=== PATIENT | male | born 1965 | race Caucasian/White ===

== ENCOUNTER 2020-08-05 06:28 | Day surgery (SDC) | payer OTHER, SELFPAY ==
[2020-07-30 11:01] VITALS: BMI 36.6
--- NOTE | 2020-08-02 12:55 | P.CONAN_ITS ---
HPI - Anesthesia Eval Consult details Narrative: 54yo M for Colonoscopy [facility] Past Medical History Medical History History of anxiety HTN (hypertension) Hx of Crohn's disease Surgical History Surgical History H/O colonoscopy History of surgical removal of ganglion cyst Hx of wisdom tooth extraction Social History Social History Patient Tobacco Use Status: Never used Tobacco Use of substances other than those prescribed or required for medical reasons: No Have you been hit, kicked, punched, or otherwise hurt by someone within the past year? If so, by whom?: No Are you DNR?: No Advance Directives Information Provided: No Meds Allergies Allergy/AdvReac Type Severity Reaction Status Date / Time No Known Allergies Allergy Verified 08/05/20 06:49 Home Medications Medication Instructions Recorded Confirmed Last Taken Type balsalazide 1,500 mg PO BID 07/30/20 07/30/20 Unknown History cetirizine [Zyrtec] 10 mg PO DAILY 07/30/20 07/30/20 Unknown History lorazepam 0.5 mg PO Q6H PRN 07/30/20 07/30/20 Unknown History losartan 50 mg PO DAILY 07/30/20 07/30/20 Unknown History tadalafil 5 mg PO DAILY 07/30/20 07/30/20 Unknown History Exam Exam Date and Time: August 02, 2020 1255 Height,Weight and Vital Signs: Height 5 ft 9 in Weight 112.491 kg Assessment and Plan Assessment Anesthesia Assessment: Chart Reviewed
[2020-08-05 06:41] VITALS: BP 125/76; PULSE 76; RESP 18; TEMP 36.7; O2SAT 96
[2020-08-05] MEDS: Lactated Ringers 1,000 ML 100 ML IVCONT (07:01)
[2020-08-05 07:02] VITALS: BMI 35.7
--- NOTE | 2020-08-05 07:13 | P.CONAN_ITS ---
[facility] Past Medical History Medical History History of anxiety HTN (hypertension) Hx of Crohn's disease Surgical History Surgical History H/O colonoscopy History of surgical removal of ganglion cyst Hx of wisdom tooth extraction Social History Social History Patient Tobacco Use Status: Never used Tobacco Use of substances other than those prescribed or required for medical reasons: No Have you been hit, kicked, punched, or otherwise hurt by someone within the past year? If so, by whom?: No Are you DNR?: No Advance Directives Information Provided: No Meds Allergies Allergy/AdvReac Type Severity Reaction Status Date / Time No Known Allergies Allergy Verified 08/05/20 06:49 Active Medications: Current Medications Generic Name Dose Route Start Last Admin Trade Name Freq PRN Reason Stop Dose Admin Lactated Ringer's 1,000 mls @ 100 mls/hr 08/05/20 06:00 08/05/20 07:01 Lr IVCONT 100 mls/hr .Q10H JOSE G Administration Sodium Biphosphate/Sodium Phosphate 133 ml 08/05/20 05:59 Sodium Phosphate,[place]-Dibasic 133 Ml Enema [place] ONCE PRN Poor Colonoscopy Prep Results Home Medications Medication Instructions Recorded Confirmed Last Taken Type balsalazide 1,500 mg PO BID 07/30/20 07/30/20 Unknown History cetirizine [Zyrtec] 10 mg PO DAILY 07/30/20 07/30/20 Unknown History lorazepam 0.5 mg PO Q6H PRN 07/30/20 07/30/20 Unknown History losartan 50 mg PO DAILY 07/30/20 07/30/20 Unknown History tadalafil 5 mg PO DAILY 07/30/20 07/30/20 Unknown History Exam Exam Date and Time: August 05, 2020712 Height,Weight and Vital Signs: Height 5 ft 9 in Weight 109.769 kg Last Vital Signs Temp 98.0 F 08/05/20 06:41 Pulse 76 08/05/20 06:41 Resp 18 08/05/20 06:41 BP 125/76 08/05/20 06:41 Pulse Ox 96 08/05/20 06:41 Airway Mallampati Class: II TM Dist: >3cm Neck ROM: Full Loose/Missing/Broken Teeth: No Assessment and Plan Assessment Anesthesia Assessment: Anesthesia Plan Discussed and Chart Reviewed Final Anesthetic Review NPO: Yes ASA Class: II Final Preanesthetic Review: No Changes in Pt Med Stat, Meds/Allgs Chart Reviewed, Consent Obtained/Reviewed and Anes Risks/Benef Reviewed Patient Risk: Low Procedure Risk: Low Anesthetic Plan Anesthetic Plan: MAC: and Agree w/ Assess. and Plan Disposition: Standard PACU
[2020-08-05 08:28] VITALS: BP 101/59; PULSE 80; RESP 18; TEMP 36.2; O2SAT 97
--- NOTE | 2020-08-05 08:33 | P.BOP_ITS ---
Brief Operative Note Date of Service: 08/05/20 Pre-op diagnosis: Screening, Hx of Crohn's colitis Post-op diagnosis: other (Mild diverticulosis, Internal hemorrhoids) Procedure: Colonoscopy to the cecum with biopsies Surgeon: Randolph Naqvi Anesthesia: MAC Was an Deputy Brand Inspector used for this Procedure?: No Estimated blood loss (mL): 5.0 Pathology: other (A. Ascending colon B. Transverse colon C. Descending colon D. Sigmoid colon E. Rectum) Condition: stable Disposition: PACU
[2020-08-05 08:42] VITALS: BP 107/68; PULSE 65; RESP 12; TEMP 36.2; O2SAT 96
--- NOTE | 2020-08-05 08:56 | OP_ITS ---
SURGEON: Randolph Naqvi MD INDICATIONS: The patient presents for followup of personal history of Crohn's colitis and colorectal cancer screening. Full consent has been obtained from him for this, including risks of bleeding and perforation. PREOPERATIVE DIAGNOSIS: POSTOPERATIVE DIAGNOSIS: PROCEDURE PERFORMED: Colonoscopy to cecum with multiple biopsies. ESTIMATED BLOOD LOSS: COMPLICATIONS: ANESTHESIA: Monitored anesthesia care. ASSISTANTS: SPECIMENS: PREOPERATIVE DIAGNOSES: History of Crohn's colitis and colorectal cancer screening. POSTOPERATIVE DIAGNOSES: History of Crohn's colitis and colorectal cancer screening, rule out dysplasia, mild sigmoid diverticulosis, and small internal hemorrhoids. DESCRIPTION OF PROCEDURE: The patient was placed in the left lateral decubitus position. The digital rectal exam revealed no abnormalities. There was no sign of any perianal disease. The Olympus video pediatric colonoscope was entered into the rectum and advanced easily to the cecum. Once in the cecum, I did identify normal-appearing cecal pouch with appendiceal orifice and a normal-appearing ileocecal valve. The entire cecum and ileocecal valve appeared normal. The scope was slowly withdrawn assessing all mucosal surfaces carefully. Preparation was excellent. I did not visualize any sign of colitis, polyps, nor angiodysplasia. Random biopsies were obtained in the ascending colon, transverse colon, descending colon, sigmoid colon, and rectum. There was a mild amount of sigmoid diverticulosis. In the rectum, scope was retroflexed visualizing minimal internal hemorrhoids, but no other pathology. The scope was straightened out and withdrawn from the patient. He tolerated the procedure well and was returned to the recovery area in stable condition. IMPRESSION: 1. History of Crohn's colitis, rule out dysplasia. 2. Mild diverticulosis. 3. Minimal internal hemorrhoids. PLAN: The results of the biopsy will be checked. Assuming there is no dysplasia, I would recommend a repeat colonoscopy in 5 years. He will continue his current regimen of balsalazide 1.5 g twice a day. He was advised not to use any aspirin and NSAIDs for 1 week. As long as things are stable, he can see me in the interim on a p.r.n. basis. MD CHRISTINA Prabhakar/FRANK / [phone]
== END 2020-08-05 09:10 | disposition home or self-care (01) ==
PROVIDERS: PCP Internal Medicine; Visit Provider Internal Medicine
PROC: 0DJD8ZZ Inspection of Lower Intestinal Tract, Via Natural or Artificial Opening Endoscopic (ICD-10-PCS; CPT 45378; principal; 2020-08-05 07:30)
DX: Z12.11 Encounter for screening for malignant neoplasm of colon (principal); K50.10 Crohn's disease of large intestine without complications; K57.30 Diverticulosis of large intestine without perforation or abscess without bleeding; K64.8 Other hemorrhoids; I10 Essential (primary) hypertension; Z79.899 Other long term (current) drug therapy
CPT/HCPCS: 45380; 88305

== ENCOUNTER 2021-08-14 09:54 | Outpatient (REF) | payer OTHER, SELFPAY ==
--- NOTE | ~2021-08-14 | FL_ITS ---
EXAMINATION: FL BARIUM SWALLOW CLINICAL INFORMATION: Dysphagia COMPARISON: None TECHNIQUE: Barium swallow examination is performed using fluoroscopic evaluation in addition to multiple fluoroscopic spot views. The patient is imaged both upright and prone and using both thick and thin sulfate along with effervescent granules. Fluoroscopy time: 2.1 minutes DAP: 4.086 Gy-cm2 Images: 41 FINDINGS: Following oral administration of thick barium and barium-coated turkey in upright view under fluoroscopy, there is normal propagation of bolus from the oral cavity through the pharynx, esophagus into stomach without any evidence of obstruction, narrowing or stricture. The GE junction is widely patent. Mild degenerative disc changes C5-C6 and C6-C7 disc levels are noted. No intrinsic or extrinsic compression of esophagus seen. No laryngeal penetration or aspiration. However, there is mild retention of food in the valleculae and piriform sinuses which clears with subsequent dry swallowing. FL/FL barium swallow IMPRESSION: Mild retention of barium and food in the valleculae and minimal in the piriform sinuses which clears with subsequent dry swallowing. Rest of the upper GI exam is unremarkable.
== END 2021-08-14 09:55 | disposition home or self-care (01) ==
LOC: HO.XRAY 09:54
PROVIDERS: Visit Provider Internal Medicine Gastroenterology
DX: R13.10 Dysphagia, unspecified (principal)
CPT/HCPCS: 74220

== ENCOUNTER 2024-10-23 16:03 | Outpatient (AMB) | payer OTHER, SELFPAY ==
--- OUTSIDE RECORDS SUMMARY | 2024-10-23 18:42 | XMS_ITS | Clinical Summary ---
Author Organization [address] Address [address] [place] [address] Phone Care Team Providers Care Small Lot Operator Name Role Phone Unavailable Primary Care Provider Unavailabl e Social History Tobacco Use Types Packs/Day Years Used Date Smoking Tobacco: Never Assessed Sex and Gender Information Value Date Recorded Sex Assigned at Not on file Legal Sex Male 12:33 AM EST Gender Identity Not on file Sexual Orientation Not on file Plan of Treatment Health Maintenance Due Date Last Done Comments DTaP,Tdap,and Td Vaccines (1 - Tdap) 11/13/1983 Hepatitis B Vaccines (1 of 3 - 19+ 3-dose series) 11/13/1983 Pneumococcal Vaccine: 50+ Ye ars (1 of 1 - PCV) 2014 Zoster Vaccines (1 of 2) 2014 Depression Screening 02/16/2024 Cholesterol Screening (Lipid Panel) 03/12/2024 Colorectal Cancer Screening: Colonoscopy 03/12/2024 HIV Screening 03/12/2024 Hepatitis C Screening 03/12/2024 Social Influencers of Health Screening 03/12/2024 COVID-19 Vaccine ( - 2023-2 5 season) 2024 Influenza Vaccine (#1) 2024 RSV Immunization Adult Patie nts (1 - 1-dose 75+ series) 11/13/2039 HIB Vaccines Aged Out No longer eligi ble based on patient's age to complete this topic HPV Vaccines Aged Out No longer eligi ble based on patient's age to complete this topic Hepatitis A Vaccines Aged Out No long er eligible based on patient's age to complete this topic IPV Vaccines Aged Out No longer eligi ble based on patient's age to complete this topic MMR Vaccines Aged Out No longer eligi ble based on patient's age to complete this topic Meningococcal ACWY Vaccine Aged Out N o longer eligible based on patient's age to complete this topic Meningococcal B Vaccine Aged Out No l onger eligible based on patient's age to complete this topic RSV Immunization Patients Un titus 20 months Aged Out No longer eligible b ased on patient's age to complete this topic Varicella Vaccines Aged Out No longer eligible based on patient's age to complete this topic Insurance [facility] [place] [id number]
--- OUTSIDE RECORDS SUMMARY | 2024-10-23 18:43 | XMS_ITS | Encounter Summary ---
Author Organization [facility] Address [address] [place] [address] Care Team Providers Care Medical Billing Associate Name Role Phone Unavailable Primary Care Provider Unavailabl e Encounter Details Date Type Department Care Team (Late st Contact Info) Description 01/07/2024 Lab Requisition [facility] - Main Lab [address] [facility] [place] [address] Dominguez Govea PA [address] [place] [address] Benign essential microscopic hematuria Social History Tobacco Use Types Packs/Day Years Used Date Smoking Tobacco: Never Assessed Sex and Gender Information Value Date Recorded Sex Assigned at Not on file Legal Sex Male 12:33 AM EST Gender Identity Not on file Sexual Orientation Not on file documented as of this encounter Plan of Treatment Not on file documented as of this encounter Procedures Procedure Name Priority Date/Time Associated Diagnosis Comments AP OUTSIDE CONSULT Routine 01/03/2024 12 :00 AM EST Benign essential microscopic hematuria documented in this encounter Results * Anatomic pathology outside consult (01/03/2024 12:00 AM EST) Final Diagnosis Urine, Voided: Negative for high grade urothelial carcinoma. 01/18/2024 4:51 PM EST [facility] Clinical Information [id number] Cytology w/Reflex UroVysion (AUC/SHGUC) 01/18/2024 4:51 PM EST [facility] Gross Description A. Urine, Voided, : [id number] Received 1 TP (CYTO) with Reflex Fish if Atypical/Susp 01/18/2024 4:51 PM EST [facility] Disclaimer Unless otherwise specified, all tissue is 10% NB formalin fixed and paraffin embedded. 01/18/2024 4:51 PM EST [facility] Tissue Urine specimen from urethra / Unknown 01/03/2024 01/07/2024 11:33 AM EST us [facility] PATHOLOGY ORDERAB LES Final Result [facility] [address] [place] [address], [place] [phone] documented in this encounter Visit Diagnoses Diagnosis Benign essential microscopic hematuria documented in this encounter
--- OUTSIDE RECORDS SUMMARY | 2024-10-23 18:43 | XMS_ITS | Patient Health Record ---
Author Organization [facility] Address [address] [place] [address] Care Team Providers Care Bookmobile Clerk Name Role Phone Brinda Reece MD Primary Care Provider Randolph Morales [phone] Reason For Referral No Information Medications Medication SIG (Take, Route, Frequency, Duration) Notes Start Date End Date Status LORazepam 0.5 MG 1 tablet as needed O rally every 6 hrprn Active Balsalazide Disodium 750 MG TAKE 2 CAPSU LES Orally Twice a day for 90 days Active Losartan Potassium 50 MG 1 tablet Orally Once a day Active Tadalafil 5 MG 1 tablet Orally Once a day Active Balsalazide Disodium 750 MG 2 capsules O rally Twice a day for 90 days 06/16/2024 Active ZyrTEC Allergy Activ e Immunizations Vaccine Route Administration Date Status Comme nts Influenza Unknown 10/17/2019 Administered Problems Problem Type SNOMED Code ICD Code Onset Dates Problem Status W/U Status Risk Notes Problem 557671297 Encounter for screening for malignant neoplasm of colon (Z12.11) Active confirmed Problem Screening for malignant neoplasm of rectum (046703476) Encounter for screening for malignant neoplasm of rectum (Z12.12) Active confirmed Problem Crohn's disease of colon (89708756) Crohn's disease of colon (K50.10) Active confirmed Problem 65723813 Crohns colitis, without complications (K50.10) Active confirmed Problem Diverticular disease of colon (899245018) Colon, diverticulosis (K57.30) Active confirmed Encounters Encounter Location Date Provider Diagnosis [facility] [address] [place] [address] 06/13/2024 Randolph [facility] [address] [place] [address] 06/16/2024 Randolph Naqvi Plan Of Treatment Pending Test Test Name Order Date CHEM 7 PROFILE 08/24/2011 LIVER PROFILE 08/24/2011 CBC w DIFF 08/24/2011 Future Test Test Name Order Date COLONOSCOPY 03/26/2015 COLONOSCOPY 01/23/2020 Next Appt Details Provider Name:Randolph Naqvi , 11/21/2024 09:10:00 AM, [address], [address], [place], [address], Insurance Providers Payer Name Payer Address Payer Phone Subscriber Number Group Number Insured Name Patient Relationship to Insured Coverage Start Date Coverage End Date [facility] [address] [place] [address] [id number] ALISE PIERRE Self - patient is the insured Medical (General) History Medical History History ICD Code Screening colonoscopy 7-19-2 010--negative for active colitis, dysplasia, nor adenomas; same findings in 05/2015 Crohn's disease of the large intestine-- diagnosed in 1994. Denies MS,DM,CVA,Lung disease,renal dise ase Hypertension- mild Anxiety Surgical History Surgery Date(Month/Year) wisdom teeth extraction ganglion cyst
== END 2024-10-23 16:05 | disposition home or self-care (01) ==
LOC: HO.HMGAL 16:03
PROVIDERS: PCP Internal Medicine; Visit Provider Registered Nurse Emergency
DX: J30.89 Other allergic rhinitis (principal)
CPT/HCPCS: 95117; 95165

== ENCOUNTER 2024-10-28 21:18 | Emergency (ER) | payer OTHER, SELFPAY ==
--- NOTE | ~2024-10-28 | CT_ITS ---
CLINICAL HISTORY: syncope - D-dimer(333) CT angiography chest with contrast. 3D Postprocessing. Comparison: None provided Findings: There is no pulmonary embolism. Heart size is normal. There is no pericardial effusion. Thoracic aorta is normal in diameter without dissection. There is mild coronary artery calcification. There are no enlarged lymph nodes. The lungs are clear. Trachea and central bronchi are widely patent. There is no fracture or suspicious lytic or sclerotic lesion. Limited images of the upper abdomen are unremarkable. IMPRESSION: No pulmonary embolism or other acute abnormality in the chest. This document has been electronically signed by: Mark Starr MD on 10/29/2024 00:26:47
[2024-10-28 21:21] VITALS: BP 105/57; PULSE 59; RESP 16; TEMP 36.9; O2SAT 96; BMI 38.1
[2024-10-28 21:26] VITALS: PULSE 61
[2024-10-28 21:26] LABS: Glucose, Whole Blood 121 mg/dL (60-115)
--- NOTE | 2024-10-28 21:45 | ECG_ITS ---
Test Reason : SYNCOPE Blood Pressure : */* mmHG Vent. Rate : 53 BPM Atrial Rate : 53 BPM P-R Int : 196 ms QRS Dur : 104 ms QT Int : 432 ms P-R-T Axes : 40 -23 20 degrees QTcB Int : 405 ms Sinus bradycardia Otherwise normal ECG No previous ECGs available Referred By: Caity Moy Electronically Signed By: RAMÍREZ BAUTISTA MD
--- OUTSIDE RECORDS SUMMARY | 2024-10-28 21:53 | XMS_ITS | Clinical Summary ---
Author Organization [address] Address [address] [place] [address] Phone Care Team Providers Care Mountain Bike Guide Name Role Phone Unavailable Primary Care Provider [...] patient's age to complete this topic Insurance [facility] [place] [id number]
--- OUTSIDE RECORDS SUMMARY | 2024-10-28 21:54 | XMS_ITS | Patient Health Record ---
Author Organization [facility] Address [address] [place] [address] Care Team Providers Care Chief Compliance Officer Name Role Phone Brinda Reece MD Primary Care Provider Randolph Morales [phone] Reason For Referral No Information Medications Medication [...] Problem Status W/U Status Risk Notes Problem [id number] Encounter for screening for malignant neoplasm of colon (Z12.11) Active confirmed Problem Screening for malignant neoplasm of rectum (751044762) Encounter for screening for malignant neoplasm of rectum (Z12.12) Active confirmed Problem Crohn's disease of colon (56429435) Crohn's disease of colon (K50.10) Active confirmed Problem 48947390 Crohns colitis, without complications (K50.10) Active confirmed Problem Diverticular disease of colon (557469565) Colon, diverticulosis (K57.30) Active confirmed Encounters Encounter Location Date Provider Diagnosis [facility] [address] [place] [address] 06/13/2024 Randolph [facility] [address] [place] [address] 06/16/2024 Randolph Naqvi Plan Of Treatment Pending Test Test Name Order Date CHEM 7 PROFILE 08/24/2011 LIVER PROFILE 08/24/2011 CBC w DIFF 08/24/2011 Future Test Test Name Order Date COLONOSCOPY 03/26/2015 COLONOSCOPY 01/23/2020 Next Appt Details Provider Name:Randolph Naqvi , 11/21/2024 09:10:00 AM, [address], [address], [place], [address], Insurance Providers Payer Name Payer Address Payer Phone Subscriber Number Group Number Insured Name Patient Relationship to Insured Coverage Start Date Coverage End Date [facility] [address] [place] [address] [id number] ALISE PIERRE Self - patient is the insured Medical (General) History Medical History History ICD Code Screening colonoscopy 7-19-2 010--negative for active colitis, dysplasia, nor adenomas; same findings in 05/2015 Crohn's disease of the large intestine-- diagnosed in 1994. Denies PA,DM,CVA,Lung disease,renal dise ase Hypertension- mild Anxiety Surgical History Surgery Date(Month/Year) wisdom teeth extraction ganglion cyst
--- OUTSIDE RECORDS SUMMARY | 2024-10-28 21:54 | XMS_ITS | Encounter Summary ---
Author Organization [facility] Address [address] [place] [address] Care Team Providers Care Stamping Machine Operator Name Role Phone Unavailable Primary Care Provider Unavailabl e Encounter Details Date Type Department Care Team (Late st Contact Info) Description 01/07/2024 Lab Requisition [facility] - Main Lab [address] [facility] [place] [address] Dominguez Govea PA [address] [place] [address] Benign essential microscopic hematuria Social [...] grade urothelial carcinoma. 01/18/2024 4:51 PM EST [facility] Clinical Information [id number] Cytology w/Reflex UroVysion (AUC/SHGUC) 01/18/2024 4:[address] [facility] Gross Description A. Urine, Voided, : [id number] Received 1 TP (CYTO) with Reflex Fish if Atypical/Susp 01/18/2024 4:51 PM EST [facility] Disclaimer Unless otherwise specified, all tissue is 10% NB formalin fixed and paraffin embedded. 01/18/2024 4:51 PM EST [facility] Tissue Urine specimen from urethra / Unknown 01/03/2024 01/07/2024 11:33 AM EST us Dom[facility] PATHOLOGY ORDERAB LES Final Result [facility] [address] [place] [address], [place] [phone] documented in this encounter Visit Diagnoses Diagnosis Benign essential microscopic hematuria documented in this encounter
--- NOTE | 2024-10-28 21:59 | ED.SYNCOPE ---
HPI - Syncope General Chief Complaint: Syncope Stated Complaint: lightheaded Time Seen by Provider: 10/28/24 21:23 History of Present Illness HPI narrative: Patient is a 58-year-old male was visiting his mother in another ER room when suddenly he became very lightheaded dizzy got very diaphoretic. Patient denies any chest pain no shortness of breath. Did have dinner tonight. Has been up all day. [place] very weak. No history of [place] no leg swelling. No chest pain. No history of blood clots. Patient is from home. No history of diabetes positive history of hypertension no history of high cholesterol not a smoker never had a heart attack. Patient had previous bouts of near syncope in the past. No bloody stool. No chest pain. Related Data Home Medications ?Medication ?Instructions ?Recorded ?Confirmed balsalazide 750 mg capsule 1,500 mg PO BID 07/30/20 07/30/20 cetirizine 10 mg tablet (Zyrtec) 10 mg PO DAILY 07/30/20 07/30/20 lorazepam 0.5 mg tablet 0.5 mg PO Q6H PRN Anxiety 07/30/20 07/30/20 losartan 50 mg tablet 50 mg PO DAILY 07/30/20 07/30/20 tadalafil 5 mg tablet 5 mg PO DAILY 07/30/20 07/30/20 Allergies Allergy/AdvReac Type Severity Reaction Status Date / Time No Known Allergies Allergy Verified 10/28/24 21:24 Review of Systems Review of Systems: No fever no chills no cough no congestion or upper respiratory symptoms Yes all other systems are reviewed and are negative PMFSH Past Medical History Attestation statement: The following information was validated with the patient. Medical History History of anxiety HTN (hypertension) Hx of Crohn's disease Surgical History History of surgical removal of ganglion cyst Hx of wisdom tooth extraction H/O colonoscopy Social History Social History Patient Tobacco Use Status: Never used Tobacco Smoked in Last 30 Days: No Use of substances other than those prescribed or required for medical reasons: No Advance Directives: No Advance Directives Information Provided: No Do you have a plan to hurt others: No Plan Physical Exam Exam: Exam: Appearance: Alert. Oriented X3. No acute distress. Eyes: Pupils equal, round and reactive to light. ENT: Pharynx normal. Neck: Normal inspection. Neck supple. No lymph nodes noted. No crepitus CVS: Normal heart rate and rhythm. Pulses normal. Normal S1 and S2 Respiratory: No respiratory distress. Breath sounds normal. No Wheezing. No rales Abdomen: Soft and nontender. No rigidity. No distention. good BS x4 Skin: Skin warm and dry. Normal skin color. Normal skin turgor. Extremities: No lower extremity edema. Neurovascular intact to all extremities. No Lacerations. No Rash Neuro: Oriented X 3. No motor deficit. No sensory deficit. Moving all extermities. No slurred speech Vital Signs: Vital Signs: Last Vital Signs Temp 98 F 10/28/24 23:19 Pulse 58 10/28/24 23:19 Resp 17 10/28/24 23:19 BP 132/59 L 10/28/24 23:19 Pulse Ox 97 10/28/24 23:45 O2 Del Method Room Air 10/28/24 23:45 BMI result Body Mass Index 38.1 Medications Administered Discontinued Medications Generic Name Dose Route Start Last Admin Trade Name Freq PRN Reason Stop Dose Admin Sodium Chloride 1,000 mls @ 999 mls/hr 10/28/24 21:45 10/28/24 23:00 Ns IV 10/28/24 22:45 Infused .Q1H1M JOSE G Infusion Iohexol 75 ml 10/28/24 23:32 10/28/24 23:39 Iohexol 350 Mg/Ml 100 Ml Infus..Btl IV 10/28/24 23:33 75 ml ONCE ONE Administration Medical Decision Making Medical Decision Making [facility] Narrative: Well-appearing no acute distress my interpretation patient's EKG showed a sinus rhythm heart rate is 50 [place] QRS QTC is normal there is nonspecific T-wave flattening diffusely noted. I do not appreciate any old EKG in the system. Patient's troponin was negative. No chest pain associated with these symptoms patient felt lightheaded then had the syncopal or near syncopal episode. Had a history of the same. Hemoglobin is 13 there is no evidence of anemia. There is no palpitation. Patient's BUN creatinine is normal. Patient is urine showed no signs of infection. CTA of the chest was done as patient had an elevated D-dimer the CTA was grossly negative there is no evidence for PE. Currently in stable condition hydrated well-appearing will discharge home. Differential Diagnosis Differential Diagnoses: The differential diagnosis associated with the presentation includes Irregular heartbeat, vasovagal episode dehydration Admission/Observation Consideration of admission/observation: Escalation of care including admission/observation considered Lab Data MDM Lab Attestation statement: I reviewed the patient's lab results. 10/28/24 22:10 10/28/24 22:10 Labs: Lab Results 10/28/24 10/28/24 10/28/24 Range/Units 21:22 22:10 23:37 WBC 8.5 (4.8-10.8) X10*3/uL RBC 4.52 L (4.60-5.80) X10*6/uL Hgb 13.1 L (14.0-18.0) g/dl Hct 38.9 L (42.0-52.0) % MCV 86.1 (80.0-98.0) fL MCH 29.0 (27.0-33.0) pg MCHC 33.7 (31.0-36.0) g/dl RDW 13.8 (11.0-16.0) % Plt Count 205 (160-400) X10*3/uL MPV 10.4 (9.4-12.4) fL Immature Gran % (Auto) 0.2 (0.0-0.4) % Neut % (Auto) 69.1 (45-73) % Lymph % (Auto) 20.4 (20-40) % [place] % (Auto) 7.4 (2-11) % Eos % (Auto) 2.7 (0-4) % Baso % (Auto) 0.2 (0-2) % Lymph # (Auto) 1.7 (1.2-4.9) X10*3/uL [place] # (Auto) 0.6 (0.1-1.2) X10*3/uL Eos # (Auto) 0.2 (0.0-0.4) X10*3/uL Baso # (Auto) 0.0 (0.0-0.2) X10*3/uL Abs Immat Gran (auto) 0.02 (0.00-0.03) X10*3/uL Absolute Neuts (auto) 5.9 (2.0-8.3) x10*3/uL Absolute Nucleated RBC 0.000 (0.0-0.012) X10*3/uL Nucleated RBC % (auto) 0.0 (0.0-0.2) /100WBC D-Dimer High Sensitivty 333 NG/ML Sodium 140 (135-145) mmol/L Potassium 3.5 (3.3-5.1) mmol/L Chloride 103 (96-108) mmol/L Carbon Dioxide 25 (22-29) mmol/L Anion Gap 16 (12-20) BUN 17 H (9-16) mg/dL Creatinine 0.80 (0.5-1.4) mg/dL Estim Creat Clear Calc 125.4 Estimated GFR > 60 POC Glucose 121 H (60-115) mg/dL Random Glucose 123 H (60-115) mg/dL Calcium 8.9 (8.4-10.2) mg/dL Troponin I High Sens 3.6 (<3.5-35.0) ng/L Urine Color Dark Yellow Urine Appearance Clear Urine pH 6.5 (5.0-9.0) Ur Specific [place] >= 1.030 H (1.005-1.025) Urine Protein 30 (1+) H (Neg-Trace) mg/dL Urine Glucose (UA) Negative (Negative) mg/dL Urine Ketones Trace (Negative) mg/dL Urine Blood Negative (Negative) Urine Nitrite Negative (Negative) Ur Leukocyte Esterase Trace H (Negative) Urine RBC 0-2 (0-2) /HPF Urine WBC 6-10 (0-5) /HPF Ur Squamous Epith Cells 3-5 (0-2) /HPF Urine Bacteria None Seen (None Seen) Hyaline Casts 3-5 (0-2) /LPF Independent Interpretation I performed an independent interpretation of an: EKG (Sinus heart rate is 50 WA QRS QTC within normal limits is no ST segment elevation) and CT Scan (CTA was negative) Radiology Impression Discussion of test interpretation with radiology: I have reviewed the radiologist's reading. Chronic Conditions Patient?s care impacted by: Hypertension Social Determinants Patient?s care significantly limited by Social Determinants of Health including: Problems related to primary support group Discharge Plan Discharge Clinical Impression: Vasovagal syncope Patient Disposition: Home, Self-Care Instructions: Syncope (ED) Prescriptions: No Action losartan 50 mg Tablet 50 mg PO DAILY cetirizine [Zyrtec] 10 mg Tablet 10 mg PO DAILY lorazepam 0.5 mg Tablet 0.5 mg PO Q6H PRN (Reason: Anxiety) balsalazide 750 mg Capsule 1,500 mg PO BID tadalafil 5 mg Tablet 5 mg PO DAILY Referrals: Brinda Reece MD [Primary Care Provider, Medical] - 10/31/24 Print Language: [place]
[2024-10-28 22:14] LABS: MANUAL DIFF FLAG NO
[2024-10-28 22:15] LABS: Hematocrit 38.9 % (42.0-52.0); Hemoglobin 13.1 g/dl (14.0-18.0); Imm Gran Abs Auto 0.02 X10*3/uL (0.00-0.03); Imm Gran Pct Auto 0.2 % (0.0-0.4); Lymphocytes Absolute Auto 1.7 X10*3/uL (1.2-4.9); Mean Corpuscular HGB Conc 33.7 g/dl (31.0-36.0); Mean Corpuscular Hemoglobin 29.0 pg (27.0-33.0); Mean Corpuscular Volume 86.1 fL (80.0-98.0); NRBC Abs Auto 0.000 X10*3/uL (0.0-0.012); NRBC Pct Auto 0.0 /100WBC (0.0-0.2); Platelet Count 205 X10*3/uL (160-400); Red Blood Count 4.52 X10*6/uL (4.60-5.80); White Blood Count 8.5 X10*3/uL (4.8-10.8)
[2024-10-28 22:23] LABS: D Dimer High Sensitivity 333 NG/ML
[2024-10-28 22:27] LABS: Anion Gap 16 (12-20); Blood Urea Nitrogen 17 mg/dL (9-16); Calcium 8.9 mg/dL (8.4-10.2); Carbon Dioxide 25 mmol/L (22-29); Chloride 103 mmol/L (96-108); Creatinine Clr Calc Pharmacy 125.4; Estimated Glomerular Filt Rate > 60; Potassium 3.5 mmol/L (3.3-5.1); Sodium 140 mmol/L (135-145)
[2024-10-28 22:35] LABS: Troponin-I High Sensitivity 3.6 ng/L (<3.5-35.0)
[2024-10-28 23:19] VITALS: BP 132/59; PULSE 58; RESP 17; TEMP 36.6; O2SAT 97
[2024-10-28] MEDS: iohexoL 350 MG/ML 100 ML INFUS..BTL 75 ML IV (23:39)
[2024-10-28 23:43] LABS: Appearance Urine Clear; Glucose Urine UA Negative (Negative); PH 6.5 (5.0-9.0); Specific Gravity - Urine >= 1.030 (1.005-1.025); UMIC TRIGGER UACC YES
[2024-10-28 23:45] VITALS: O2SAT 97
--- NOTE | 2024-10-28 23:46 | PC.NURSE ---
Report received and care assumed at 2300. The pt was noted to be awake and alert sitting upright in the bed at that time without distress noted. He offers no complaints at that time, was able to independently ambulate himself to and from the bathroom with ease to provide staff with a UA sample. The pt denies the presence of dizziness or other associated symptoms at that time. He has since returned from [place] where he was again observed to ambulate steadily and without assistance needed. The pt is sinus on the monitor and will continue to be monitored.
[2024-10-29 00:05] LABS: UACC Culture Trigger YES
[2024-10-29 00:58] VITALS: BP 138/64; PULSE 87; RESP 18; TEMP 37.8; O2SAT 97
== END 2024-10-29 01:00 | disposition home or self-care (01) ==
PROVIDERS: Emergency Provider Emergency Medicine Emergency Medical Services; PCP Internal Medicine
DX: R55 Syncope and collapse (principal); I10 Essential (primary) hypertension; R61 Generalized hyperhidrosis; K50.90 Crohn's disease, unspecified, without complications; Z79.899 Other long term (current) drug therapy; Z63.9 Problem related to primary support group, unspecified
CPT/HCPCS: 36415; 71275; 80048; 81001; 82947; 84484; 85025; 85379; 87086; 93005; 96360; 99285; Q9967

== ENCOUNTER → 2024-10-28 21:45 | Outpatient (BNV) | payer OTHER, SELFPAY | PROVIDERS: Emergency Provider Emergency Medicine Emergency Medical Services; PCP Internal Medicine; Visit Provider Internal Medicine Cardiovascular Disease | DX: R00.1 Bradycardia, unspecified (principal) | CPT/HCPCS: 93010 ==

== ENCOUNTER → 2024-10-28 22:34 | Outpatient (BNV) | payer OTHER, SELFPAY | PROVIDERS: Emergency Provider Emergency Medicine Emergency Medical Services; PCP Internal Medicine; Visit Provider Radiology Diagnostic Radiology | DX: R55 Syncope and collapse (principal); R79.89 Other specified abnormal findings of blood chemistry | CPT/HCPCS: 71275 ==